=== PATIENT | female | born 1960 | race African-American/Black ===

== ENCOUNTER 2021-04-12 19:47 | Emergency (ER) | payer OTHER ==
[2021-04-12] MEDS ORDERED: HYDROcodone/Acetaminophen 5/325 mg Tablet ONE (20:17)
[2021-04-12] MEDS ORDERED: Cyclobenzaprine 10 MG TAB ONE (20:18)
== END 2021-04-12 20:35 | disposition home or self-care (01) ==
LOC: NAV ERS 19:47
DX: M51.16 Intervertebral disc disorders with radiculopathy, lumbar region (principal); G89.29 Other chronic pain
CPT/HCPCS: 99283